=== PATIENT | male | born 1965 | race Caucasian/White ===

== ENCOUNTER → 2018-09-11 | Outpatient (REF) ==
--- NOTE | 2018-09-11 12:17 | REP ---
Clinical: Pain in disability. Technique: AP, lateral, coned-down views of the lumbosacral spine. Findings: Moderate multilevel degenerative changes include endplate sclerosis, marginal spurring, hypertrophic facet changes and minimal disc space narrowing at multiple levels. Alignment and lordosis maintained. No acute fracture / compression injury or subluxation. Impression: Moderate multilevel degenerative changes. Electronically Signed by Amadou Spencer MD 09/11/2018 12:09 P
--- NOTE | 2018-09-11 12:19 | REP ---
Clinical: Pain. Technique: AP, lateral, bilateral oblique and sunrise views of the right knee. Comparison: 12/29/2005 Findings: Evidence of prior ACL repair again noted. Advanced tricompartmental osteoarthritic degenerative changes have progressed from prior examination. Findings include subchondral sclerosis/heterogeneity, tibiofemoral and patellofemoral joint space narrowing, bulky osteophytosis, and multiple loose bodies within the joint space. Prepatellar swelling suggested. No obvious effusion. No obvious acute fracture or dislocation. Impression: Progressive advanced tricompartmental osteoarthritic degenerative changes. Electronically Signed by Amadou Spencer MD 09/11/2018 12:10 P
== END ==
LOC: M SMT 11:41
PROVIDERS: ATTEND Internal Medicine
DX: Z00.00 Encounter for general adult medical examination without abnormal findings (principal)

== ENCOUNTER → 2022-11-28 | Outpatient (REF) | LOC: M PLAIMG 09:47 | PROVIDERS: ATTEND Internal Medicine | DX: R52 Pain, unspecified (principal) ==